=== PATIENT | female | born 1965 | race Caucasian/White ===

== ENCOUNTER 2016-10-19 07:47 | Day surgery (SDC) | payer BC, OTHER ==
[2016-10-19] MEDS ORDERED: Lactated Ringers 1,000 ML IV ONE (08:15)
[2016-10-19] MEDS ORDERED: Cyanocobalamin (Vitamin B12) 1,000 MCG/ML SDV IM ONE (08:15)
[2016-10-19] MEDS ORDERED: Propofol 200 MG/20 ML SDV ONE (08:35)
[2016-10-19] MEDS ORDERED: Midazolam 1 MG/ML 2 ML SDV ONE (08:35)
[2016-10-19] MEDS ORDERED: fentaNYL 100 MCG/2 ML SDV ONE (08:35)
[2016-10-19] MEDS ORDERED: Glycopyrrolate 0.2 MG/ML 2 ML SDV IVPUSH ONE (08:45)
[2016-10-19] MEDS ORDERED: MVI, Adult with Vitamin K 10 ML, Thiamine 200 MG, Chromium/Copper/Mang/Selen/Zn 1 ML in... IV ONE ×4 (09:15)
[2016-10-19 11:15] VITALS: BP 109/68
--- NOTE | 2016-10-22 10:26 | OR ---
DATE OF PROCEDURE: 10/19/2016 PREOPERATIVE DIAGNOSIS: Epigastric discomfort and dysphagia, status post gastric bypass. POSTOPERATIVE DIAGNOSES: 1. Mild strictured gastrojejunostomy. 2. Foreign body (pledget and suture) at gastrojejunostomy. OPERATIVE PROCEDURE: Upper gastrointestinal endoscopy with: 1. Dilation gastrojejunostomy (30508). 2. Removal of foreign body at gastrojejunostomy (73470). ANESTHESIA: IV sedation. INDICATION FOR PROCEDURE: This is a 51-year-old status post Mayra-en-Y gastric bypass in 2009 presenting with some recent dysphagia and epigastric discomfort. Presently, she is on Carafate and Protonix, and has had marked improvement in her symptoms. Plan is to proceed with upper GI endoscopy with biopsies and/or dilation as indicated, also reported to have a suture in the lumen, which we would most likely try to remove. Potential risks including bleeding and perforation were discussed, and the patient wishes to proceed. DETAILS OF PROCEDURE: The patient was taken to the operating room and placed in a left lateral decubitus position. IV sedation was administered, after which the upper GI endoscope was passed orally through the length of the esophagus and into the gastric pouch, from there through the gastrojejunostomy roughly 20 cm into the Mayra limb. In terms of inflammation at this point, this was very minimal at the level of the distal esophagus, gastric pouch, or gastrojejunostomy with the Carafate and Protonix currently essentially healing any ongoing inflammation present. There was a very slight narrowing in the gastrojejunostomy and the foreign body consistent with a stitch along with some pledget material. Most likely this is a diaphragmatic hernia repair stitch that had eroded into the area of the gastrojejunostomy. At this point, the gastrointestinal balloon catheter was centered across the anastomosis and inflated to 54-Kazakh size, this was held in position for 1 minute, after which balloon was deflated and withdrawn. There was a slight increased diameter of the gastrojejunostomy noted. The suture was then removed along with the pledget material and no complications were noted at this point. Procedure was then concluded. The patient was taken to the recovery room in satisfactory condition. The patient will be following up with Violeta Bradley at [facility] on 11/20/2016. I think we can at that point probably begin de-escalating her treatment, perhaps going off Carafate and then a month or two later perhaps trying to go on to every other day regimen with the Protonix. Huy Momin MD /[id number]
== END 2016-10-19 13:15 | disposition home or self-care (01) ==
LOC: JP.SDS 07:47
PROVIDERS: ATTEND Surgery
DX: K94.23 Gastrostomy malfunction (principal); T18.2XXA Foreign body in stomach, initial encounter; K21.9 Gastro-esophageal reflux disease without esophagitis; Z98.84 Bariatric surgery status; Z88.6 Allergy status to analgesic agent
CPT/HCPCS: 43245; 43247; J2250; J2704; J3010; J3411; J3420; J7120; J3490

== ENCOUNTER 2019-05-08 06:55 | Day surgery (SDC) | payer OTHER ==
[2019-05-08] MEDS ORDERED: Propofol 200 MG/20 ML SDV ONE (07:26)
[2019-05-08] MEDS ORDERED: fentaNYL 100 MCG/2 ML SDV ONE (07:26)
[2019-05-08] MEDS ORDERED: Midazolam 1 MG/ML 2 ML SDV ONE (07:26)
[2019-05-08] MEDS ORDERED: Dextrose 5%-Lactated Ringers 1,000 ML IV SCH (07:30)
[2019-05-08] MEDS ORDERED: Glycopyrrolate 0.2 MG/ML 2 ML SDV IVPUSH ONE (07:30)
[2019-05-08 10:39] VITALS: BP 109/70; PULSE 90
--- NOTE | 2019-05-13 15:28 | OR ---
DATE OF PROCEDURE: 05/08/2019 SURGEON: Huy Momin MD PREOPERATIVE DIAGNOSIS: Weight regain status post Mayra-en-Y gastric bypass. POSTOPERATIVE DIAGNOSES: Weight regain status post Mayra-en-Y gastric bypass with a fistula between gastrojejunostomy and bypassed stomach. OPERATIVE PROCEDURES: Upper gastrointestinal endoscopy with biopsies of gastric pouch for CLOtest. ANESTHESIA: IV sedation. INDICATION FOR PROCEDURE: This is a 53-year-old female status post Mayra-en-Y gastric bypass in 2007. Initially, she did well getting down to a BMI in the 26 range. Over the last 2 years, she has had significant weight regain and now has a BMI once again over 40 (height 5 feet 7 inches and weight 260 pounds, BMI of 40.8). The plan is to proceed with upper GI endoscopy for diagnostic purposes. Potential risks including bleeding and perforation were discussed, and the patient wishes to proceed. DETAILS OF PROCEDURE: The patient was taken to the operating room and placed in left lateral decubitus position. IV sedation was administered, after which the upper GI endoscope was passed orally through the length of the esophagus, into the gastric pouch and from there roughly 20 cm into the Mayra limb. Findings included normal esophagus and EG junction area. The gastric pouch was somewhat reddened. 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 This was likely point of previous ulceration with this being identified endoscopically in 2017. At this point now, there is a well-defined fistula and some bile coming back into the bypassed stomach which was also causing some of the mucosal irritation in that vicinity. The remainder of the Mayra limb was otherwise unremarkable. At this point, biopsies were obtained from the gastric pouch and sent for CLOtest for H pylori. Minimal bleeding from the biopsy site was seen, and the procedure then concluded. The patient was taken to the recovery room in satisfactory condition. The plan will be to contact the patient's insurance carrier regarding prior authorization for a revisional procedure. Huy Momin MD /[id number]
== END 2019-05-08 10:35 | disposition home or self-care (01) ==
LOC: JP.SDS 06:55
PROVIDERS: ATTEND Surgery
DX: R63.5 Abnormal weight gain (principal); K31.6 Fistula of stomach and duodenum; K21.9 Gastro-esophageal reflux disease without esophagitis; Z98.84 Bariatric surgery status; Z87.891 Personal history of nicotine dependence
CPT/HCPCS: 43239; 87081; J2250; J2704; J3010; J3490; J7121

== ENCOUNTER 2019-06-11 07:20 | Inpatient (IN) | payer OTHER ==
[~2019-06-11 07:20] MED LIST: Acetaminophen 500 MG Tab PO ONE; Dextrose 5%-Lactated Ringers 1,000 ML IV SCH; Gabapentin 300 MG Cap PO ONE; Scopolamine 1.5 MG Transdermal Patch TOP ONE
[2019-06-11] MEDS ORDERED: Ketamine 50 MG in Sodium Chloride 0.9% 49.5 ML IV SCH (08:00)
[2019-06-11] MEDS ORDERED: Ketamine 500 MG/5 ML MDV IV SCH (08:00)
[2019-06-11] MEDS ORDERED: cefOXitin 2 GM in Sodium Chloride 0.9% 50 ML IV ONE (08:00)
[2019-06-11] MEDS ORDERED: Magnesium Sulfate 3.5 GM in Sodium Chloride 0.9% 100 ML IV SCH (08:00)
[2019-06-11] MEDS ORDERED: fentaNYL 250 MCG/5 ML SDV ONE ×2 (08:41→10:17)
[2019-06-11] MEDS ORDERED: Glycopyrrolate 0.2 MG/ML 5 ML MDV ONE (08:42)
[2019-06-11] MEDS ORDERED: Rocuronium 50 MG/5 ML Vial ONE ×2 (08:42→09:41)
[2019-06-11] MEDS ORDERED: Dexamethasone 4 MG/ML SDV ONE (08:42)
[2019-06-11] MEDS ORDERED: Neostigmine Methylsulfate 1 MG/ML 5 ML Syringe ONE (08:42)
[2019-06-11] MEDS ORDERED: Propofol 200 MG/20 ML SDV ONE (08:42)
[2019-06-11] MEDS ORDERED: Ondansetron 4 MG/2 ML SDV ONE (08:42)
[2019-06-11] MEDS ORDERED: Lactated Ringers 1,000 ML ONE (09:17)
[2019-06-11] MEDS: cefOXitin 2 GM Vial ONE ×2 (10:25→11:10)
[2019-06-11] MEDS ORDERED: Meropenem 500 MG SDV ONE (10:53)
[2019-06-11] MEDS ORDERED: HYDROmorphone/Normal Saline 15 MG/30 ML PCA IV PRN (12:03)
[2019-06-11] MEDS ORDERED: diphenhydrAMINE 50 MG/ML SDV IVPUSH PRN ×2 (12:03→13:13)
[2019-06-11] MEDS ORDERED: diphenhydrAMINE 25 MG Cap PO PRN (12:03)
[2019-06-11] MEDS ORDERED: Ondansetron 4 MG/2 ML SDV IVPUSH PRN ×2 (12:03→13:13)
[2019-06-11] MEDS ORDERED: Naloxone 0.4 MG/ML SDV IVPUSH PRN (12:03)
[2019-06-11] MEDS ORDERED: hydrOXYzine HCL 100 MG/2 ML SDV IM ONE (12:09)
[2019-06-11] MEDS ORDERED: Cyclobenzaprine 10 MG Tab PO PRN (13:13)
[2019-06-11] MEDS ORDERED: Metoclopramide 10 MG/2 ML SDV IVPUSH PRN (13:13)
[2019-06-11] MEDS ORDERED: Acetaminophen 500 MG Tab PO PRN (13:13)
[2019-06-11] MEDS ORDERED: hydrOXYzine HCL 100 MG/2 ML SDV IM PRN (13:13)
[2019-06-11] MEDS ORDERED: Labetalol 20 MG/4 ML Syringe IVPUSH PRN (13:13)
[2019-06-11] MEDS ORDERED: Calcium Gluconate 10% 1 GM/10 ML SDV IVPUSH PRN (13:13)
[2019-06-11] MEDS ORDERED: Pantoprazole 40 MG Vial IVPUSH SCH (14:30)
[2019-06-11] MEDS: cefOXitin 2 GM in Sodium Chloride 0.9% 50 ML IV SCH ×2 (14:53→20:21)
[2019-06-11] MEDS: Gabapentin 250 MG/5 ML Solution ML 470 ML Bottle PO SCH ×2 (15:25→20:22)
[2019-06-11] MEDS: Acetaminophen 500 MG Tab PO SCH ×2 (15:26→22:11)
[2019-06-11] MEDS ORDERED: MVI, Adult with Vitamin K 10 ML, Thiamine 200 MG, Chromium/Copper/Mang/Selen/Zn 1 ML in... IV SCH ×4 (16:00)
[2019-06-11] MEDS: Heparin Sodium 5,000 Units/ML Vial SUBCUT SCH (20:23)
[2019-06-11] MEDS: DULoxetine 30 MG Cap PO SCH (20:25)
[2019-06-11] MEDS: Dextrose 5%-Lactated Ringers 1,000 ML IV SCH (22:11)
[2019-06-12] MEDS: Dextrose 5%-Lactated Ringers 1,000 ML IV SCH (03:56)
[2019-06-12] MEDS: cefOXitin 2 GM in Sodium Chloride 0.9% 50 ML IV SCH ×4 (03:57→19:45)
[2019-06-12] MEDS ORDERED: Iopamidol 612 MG/ML 50 ML SDV PO STA (04:01)
[2019-06-12] MEDS: Acetaminophen 500 MG Tab PO SCH ×3 (06:01→22:03)
[2019-06-12] MEDS ORDERED: Ondansetron 4 MG Tab.DIS PO PRN (07:06)
[2019-06-12] MEDS ORDERED: Dextrose 5%-Lactated Ringers 1,000 ML IV SCH (07:15)
[2019-06-12] MEDS: Heparin Sodium 5,000 Units/ML Vial SUBCUT SCH ×2 (07:42→19:46)
[2019-06-12] MEDS: Levothyroxine 50 MCG Tab PO SCH (07:42)
[2019-06-12] MEDS: DULoxetine 30 MG Cap PO SCH ×3 (08:09→22:06)
[2019-06-12] MEDS: Gabapentin 250 MG/5 ML Solution ML 470 ML Bottle PO SCH ×3 (08:09→22:02)
--- NOTE | 2019-06-12 09:45 | PN ---
DATE OF SERVICE: 06/12/2019 SUBJECTIVE: Jessica is postop day 1. Upper GI was normal. Vital signs have been stable. Oral intake 700. Urine output via Farris catheter is 2225. EZ drain #1 put out 70, #2 put out 110 of a serosanguineous drainage. LABORATORY DATA: Hemoglobin 11.7. REVIEW OF SYSTEMS: Remainder of review of systems negative for any pertinent positives and negatives. OBJECTIVE: GENERAL: Jessica Suh is a 54-year-old female. VITAL SIGNS: TPR at 0400: 97.7, 88, 16, blood pressure 121/63. HEENT: Negative. NECK: Supple. HEART: Regular rate and rhythm. LUNGS: Clear. ABDOMEN: Dressings dry and intact. Abdominal binder is on. EZ drains as above, draining a serosanguineous drainage. EXTREMITIES: Without peripheral edema. ASSESSMENT: 1. Exploratory laparotomy with: a. Esophagogastrectomy with Mayra-en-Y esophagojejunostomy and en bloc partial left hepatic lobectomy and reverse revision of prior gastrojejunostomy including fistula to bypass stomach. b. Repair of small bowel injury at site adherent to abdominal wall. c. Small bowel resection with ascending enteroenterostomy to re-establish small bowel Mayra-en-Y anatomy. 2. Iron deficiency anemia, low ferritin. POSTOPERATIVE DIAGNOSES: 1. 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 2. Focal area of bowel adherent to the abdominal wall requiring repair of small bowel. 3. Stricture of the pre-existing jejunojejunostomy. Date of surgery: 06/11/2019. Surgeon: Huy Momin MD. PLAN: 1. Decrease IV to 100 mL per hour. 2. Step 1 gastric bypass diet with milk. 3. Discontinue Farris. 4. Zofran ODT 4 mg every 4 hours p.r.n. nausea and vomiting. 5. Good pulmonary toilet. 6. We will evaluate p.r.n. or in a.m. Violeta Bradley PA-C /[id number]
[2019-06-12] MEDS: Sodium Ferric Gluconate Cmplex 250 MG in Sodium Chloride 0.9% 100 ML IV SCH (09:56)
--- NOTE | 2019-06-12 09:57 | CR ---
[facility] HISTORY: Postbariatric surgery FINDINGS: Patient swallowed water-soluble contrast. Upright views of the abdomen show no evidence of extravasation or obstruction. There are surgical drains in the left upper quadrant. There is some holdup of the distal esophagus. This may be due to some spasm. IMPRESSION: Status post bariatric surgery No extravasation or obstruction seen
[2019-06-12] MEDS: SCOPOLAMINE PATCH CHECK TOP SCH (14:03)
[2019-06-12] MEDS: Pantoprazole 40 MG Delayed-Release Granules 1 Packet PO SCH (14:08)
[2019-06-12] MEDS ORDERED: MVI, Adult with Vitamin K 10 ML, Thiamine 200 MG, Chromium/Copper/Mang/Selen/Zn 1 ML in... IV SCH ×4 (16:00)
[2019-06-13] MEDS: Acetaminophen 500 MG Tab PO SCH ×3 (06:13→21:32)
[2019-06-13] MEDS: Levothyroxine 50 MCG Tab PO SCH (07:53)
[2019-06-13] MEDS: Heparin Sodium 5,000 Units/ML Vial SUBCUT SCH ×2 (07:53→19:43)
[2019-06-13] MEDS ORDERED: Sodium Chloride 0.9% 10 ML Syringe IV SCH (08:15)
[2019-06-13] MEDS ORDERED: Cyanocobalamin (Vitamin B12) 1,000 MCG/ML SDV IM ONE (09:00)
[2019-06-13] MEDS: DULoxetine 30 MG Cap PO SCH ×2 (10:00→21:32)
[2019-06-13] MEDS: Gabapentin 250 MG/5 ML Solution ML 470 ML Bottle PO SCH ×3 (10:01→21:30)
[2019-06-13] MEDS: Sodium Ferric Gluconate Cmplex 250 MG in Sodium Chloride 0.9% 100 ML IV SCH (10:01)
[2019-06-13] MEDS: SCOPOLAMINE PATCH CHECK TOP SCH (14:00)
[2019-06-13] MEDS: Pantoprazole 40 MG Delayed-Release Granules 1 Packet PO SCH (14:00)
[2019-06-13] MEDS ORDERED: Bisacodyl 5 MG Tab PO SCH (18:00)
[2019-06-13] MEDS: Bisacodyl 5 MG Tab PO SCH ×2 (18:16→21:32)
[2019-06-13] MEDS: HYDROmorphone 2 MG Tab PO PRN (21:36)
[2019-06-14] MEDS: HYDROmorphone 2 MG Tab PO PRN ×2 (03:48→08:13)
[2019-06-14] MEDS: Acetaminophen 500 MG Tab PO SCH (05:10)
[2019-06-14 07:12] VITALS: BP 112/58; PULSE 78
[2019-06-14] MEDS: Levothyroxine 50 MCG Tab PO SCH (08:13)
[2019-06-14] MEDS: Bisacodyl 5 MG Tab PO SCH (08:14)
[2019-06-14] MEDS: DULoxetine 30 MG Cap PO SCH (08:14)
--- NOTE | 2019-06-14 08:32 | PN ---
DATE OF SERVICE: 06/13/2019 The patient has been afebrile with stable vital signs. Oral intake is fairly good. We will go up to step-2 diet with no solids. We will offer some protein drink such as Arron today. We will switch over to oral pain medications. She will probably be ready for discharge home tomorrow. Huy Momin MD /[id number]
[2019-06-14] MEDS: Gabapentin 250 MG/5 ML Solution ML 470 ML Bottle PO SCH (08:53)
--- NOTE | 2019-06-14 10:05 | OR ---
DATE OF PROCEDURE: 06/11/2019 SURGEON: Huy Momin MD PREOPERATIVE DIAGNOSIS: Fistula between gastrojejunostomy and bypassed stomach. POSTOPERATIVE DIAGNOSES: 1. Fistula between gastrojejunostomy and bypassed stomach and fibrotic adherence to left lobe of liver. 2. Focal area of bowel fused to anterior abdominal wall requiring repair of small bowel. 3. Stricture at preexisting jejunojejunostomy. OPERATIVE PROCEDURES: Exploratory laparotomy with: 1. Esophagogastrectomy with Mayra-en-Y esophagojejunostomy and en bloc partial left hepatic lobectomy (13193, 12312). 2. Repair of small bowel injury at site where small bowel was adherent to the anterior abdominal wall (64061). 3. Small bowel resection (77941). 4. Secondary enteroenterostomy to re-establish small bowel Mayra-en-Y anatomy (93039). ANESTHESIA: General. DISTRICT OR DISTRICT OFFICE DIRECTOR: Violeta Bradley PA-C. INDICATIONS FOR PROCEDURE: The patient presents with weight regain and a recently identified fistula between the area of the gastric pouch or gastrojejunostomy and adjacent bypassed stomach. Plan is to proceed with exploratory laparotomy and takedown of that fistula and other procedures as indicated. Potential risks of the procedure including bleeding, infection, leaks from any GI tract closures, as well as possibility of cardiopulmonary, septic, or hemorrhagic complications leading to were discussed, and the patient wishes to proceed. DETAILS OF PROCEDURE: The patient was taken to the operating room and placed in a supine position. After general endotracheal anesthesia was induced, Farris catheter was inserted, and the abdomen prepped and draped. In the area 15 cm inferior and 5 cm left of the xiphoid process, transverse incision was made and peritoneal cavity entered under direct vision with an Optiview trocar, inflated to 15 mmHg pressure with CO2. Bilateral transversus abdominis plane blocks were then placed and the patient was noted to have a broad area of dense adhesions between the small bowel and the upper abdominal wall and it was felt at this point we would be best served by converting this to an open procedure. The trocars were removed and the peritoneal cavity decompressed. An upper midline incision from the xiphoid to the umbilicus was made and carried down through the full-thickness abdominal wall. Upon entering the peritoneal cavity, quite dense adhesions between the anterior abdominal wall and the Mayra limb were encountered, and at one point, there was extremely dense area of adhesion formation between the anterior abdominal wall and focal area of small bowel. This was then dissected free and there was area of significant deserosalization of small bowel. This area of injury was then repaired with a transversely-oriented firing of the ALLA molina load and the area of injury which had been excised was then sent as a separate specimen. Further dissection eventually led to identification of the area around the gastrojejunostomy, gastric pouch. There was an intense inflammation in this area. It became evident that the area of the fistula formation which more or less had passed posterior to the area of the gastrojejunostomy was associated with some chronic dense fibrosis. This was intensely adherent to the adjacent left lobe of liver. That area of liver was then resected and subsequently sent en bloc with the resected gastrojejunostomy and distal esophagus. As further dissection was undertaken, it became evident that the most distal area of the GI tract will be suitable for a subsequent anastomosis to the small bowel with the distal esophagus. An Jocelyn tube that had been placed per Anesthesia orally which helped identify that area, and once the distal esophagus was encircled, that tube was removed and the distal esophagus was divided with 2 firings of ALLA black loads. The small bowel was then divided as it came up to the gastrojejunostomy with ALLA jessy as was its underlying mesentery. The remaining vascular attachments gastrojejunostomy and distal esophagus were then divided sequentially with ALLA jessy. Care was taken to avoid injury to underlying pancreas and splenic vessels. During the course of the dissection, a portion of the previously bypassed stomach which was involving the fistula formation was also excised with ALLA jessy. The specimen consisting of the distal esophagus, gastric pouch, gastrojejunostomy, and proximal small bowel adjacent to the gastrojejunostomy and a portion of the bypassed stomach were all then delivered from the field. At this point, the remainder of the small bowel was examined. The patient was noted to have some narrowing of the point where the Mayra limb entered the previous jejunojejunostomy. This was felt best treated by means of a resection and reconstruction. The 3 components of the jejunojejunostomy were then divided with the ALLA stapler as was the underlying mesentery and that specimen delivered from the field. GI tract continuity was then established with initial anastomosis between what had been the distal-most biliopancreatic limb to the proximal-most common limb with an internal firing of the Endo-ALLA 60 mm stapler. Common opening was closed transversely with the same stapler. Angles anastomosed and reinforced with some 3-0 Vicryl stitch and then mesenteric defect closed with a 2-0 silk stitch. Mayra- en-Y anatomy was then re=established with anastomosis between the end of the Mayra limb and the 1st anastomosis roughly 20 cm distally with the same sequence of staplers and closures of the mesenteric defect. At this point, the esophagojejunostomy was constructed initially. The anvil of a 25 mm EEA stapler which had been attached to [place] sump type tube was passed through the mouth, taken out, and then the tube brought out through a small opening in the divided esophagus. This allowed pulling the anvil down to within the divided esophagus as well. The divided Mayra limb was then brought up through an antecolic approach which came up at this point without any significant tension and the main body of the EEA stapler passed to the lumen of small bowel, brought up the anvil and fired thus creating the esophagojejunostomy. Upon removal of stapler, double donuts of mucosa were noted within it. Small bowel was closed off with a vascular staple line. Esophagojejunostomy was then reinforced with some 3-0 Vicryl seromuscular stitch along with fibrin sealant. At this point, no further problems were noted. Abdomen was irrigated with meropenem-containing saline solution. Two Larry-Marcelo drains were then placed through stab wounds in the left subcostal area and positioned adjacent to the esophagojejunostomy. The midline fascia was then approximated with a #2 Vicryl stitch, subcutaneous tissue with 2 layers of 3-0 and 4-0 Vicryl stitch, and the skin with jessy. The trocar site was also closed with jessy and the patient taken to the recovery room in satisfactory condition. Physician project assistant, Violeta Bradley, played an essential role in assisting in this case, helping to position the patient, retract structures as needed, as well as suturing and cutting sutures as indicated. Her presence improved patient safety and decreased operative time. Huy Momin MD /[id number]
[2019-06-14] MEDS: Heparin Sodium 5,000 Units/ML Vial SUBCUT SCH (10:15)
--- NOTE | 2019-06-14 12:09 | DISCH ---
FINAL DIAGNOSES: 1. Recurrent morbid obesity associated with fistula between the gastrojejunostomy and bypassed stomach. 2. Marked fibrotic adherence of the left lobe of liver to the area around the gastrojejunostomy and the gastric pouch. 3. Focal area of small bowel adherent to the abdominal wall requiring repair. 4. Stricture of preexisting jejunojejunostomy. 5. Recurrent morbid obesity status post previous Mayra-en-Y gastric bypass. 6. History of cervical disk disease. 7. Treated hypothyroidism. 8. Treated depression. 9. Iron deficiency status. OPERATIVE PROCEDURE: This was done on 06/10/2018, diagnostic laparoscopy followed by exploratory laparotomy with: 1. Esophagogastrectomy with Mayra-en-Y esophagojejunostomy and en bloc partial left hepatic lobectomy with removal of prior gastrojejunostomy to bypassed stomach fistula. 2. Repair of small bowel injury at site of adherence to abdominal wall. 3. Small bowel resection. 4. Secondary enteroenterostomy to establish small bowel Mayra-en-Y anatomy. SUMMARY: This is a 54-year-old presenting with some recurrent morbid obesity, recent upper endoscopy showed an area of fistula between the area of the previous gastrojejunostomy and bypassed stomach. The patient was admitted for correction of that problem. Initial diagnostic laparoscopy showed fulminant adhesions between the small bowel, stomach, and liver, and the anterior abdominal wall, and therefore converted to an open procedure. The patient was noted to have a dense fibrotic reaction and dense scarring to the area of the gastrojejunostomy, the gastric pouch, and adjacent left lobe of liver requiring focal liver resection. The most distal point in the GI tract for the subsequent anastomosis that was felt to be satisfactory was the distal esophagus, so esophagogastrectomy including the distal esophagus, gastric pouch, previous gastrojejunostomy as well as portion of the bypassed stomach involving the fistula formation were all resected en bloc. The patient did have an area of dense small bowel, adherence to the abdominal wall requiring repair, and was also noted to have some stricturing at the previous jejunojejunostomy, and this was revised in somewhat more distal configuration. Postoperatively, the patient has done well. She will be discharged home to stay on a liquid-only diet with no solids and with protein drink supplements. She will be following up with Violeta Bradley at [facility] on 06/19/2019 at 10:30. One additional finding of this patient was low ferritin level and the patient did receive 2 doses of ferric gluconate 250 mg while in the hospital.
== END 2019-06-14 10:17 | disposition home or self-care (01) | DRG 327 ==
LOC: JP.SDSSCHI 07:20 → JP.SDS 07:20 → EDSTATUS 09:15 → JP.MS 12:00
PROVIDERS: ADMIT Surgery; ATTEND Surgery
PROC: 0D130ZA Bypass Lower Esophagus to Jejunum, Open Approach (ICD-10-PCS; principal; 2019-06-11)
PROC: 0DB80ZZ Excision of Small Intestine, Open Approach (ICD-10-PCS; 2019-06-11)
PROC: 0FB20ZZ Excision of Left Lobe Liver, Open Approach (ICD-10-PCS; 2019-06-11)
PROC: 0WJG4ZZ Inspection of Peritoneal Cavity, Percutaneous Endoscopic Approach (ICD-10-PCS; 2019-06-11)
DX: K31.6 Fistula of stomach and duodenum (principal); Z68.41 Body mass index [BMI] 40.0-44.9, adult; E66.01 Morbid (severe) obesity due to excess calories; E03.9 Hypothyroidism, unspecified; Z90.710 Acquired absence of both cervix and uterus; D50.9 Iron deficiency anemia, unspecified; F32.9 Major depressive disorder, single episode, unspecified; Z98.84 Bariatric surgery status
CPT/HCPCS: 36415; 74240; 74240-26; 80053; 83735; 83880; 84100; 85025; 85027; 86850; 86900; 86901; 88305; 88307; 88342; 94762; A9270-GY; C9113; J0171; J0694; J1100; J1170; J1644; J2185; J2405; J2704; J2710; J2795; J2916; J3010; J3410; J3411; J3420; J3475; J3490; J7030; J7050; J7120; J7121; Q9967